=== PATIENT | female | born 1980 | race Caucasian/White ===

== ENCOUNTER 2016-07-25 17:07 | Emergency (ER) | payer OTHER ==
[~2016-07-25] VITALS: Ht 152.4 cm; Wt 111.7 kg
[~2016-07-25 17:07] MED LIST: AMO500 PO; AZITHROMYCIN250 M1 PO; PROAIR HFA0.09 MG/A1 INH
[2016-07-25 22:55] VITALS: BP 113/58
== END 2016-07-25 22:55 | disposition home or self-care (01) ==
LOC: ED 17:07
DX: M54.5 Low back pain (principal); M54.6 Pain in thoracic spine; G89.29 Other chronic pain; M79.606 Pain in leg, unspecified
CPT/HCPCS: J1170; J1885; J2800; Q0162

== ENCOUNTER 2016-11-08 23:29 | Emergency (ER) | payer OTHER ==
[2016-11-09 02:06] LABS: PLATELET COUNT 300 x10^3mcL (130-400); RED CELL DISTRIBUTION WIDTH 12.6 % (11.5-14.5)
[2016-11-09 02:07] LABS: BASOPHIL % 4.6 % (0-2)
[2016-11-09 02:17] LABS: CALCIUM 8.9 mg/dL (8.5-10.1); CARBON DIOXIDE 31.5 mmol/L (21-32); CHLORIDE SERUM 101 mmol/L (98-107); CREATININE SERUM 0.9 mg/dL (0.6-1.0); GFR1 > 60 mL/min; GLUCOSE SERUM 85 mg/dL (74-106); POTASSIUM SERUM 3.3 mmol/L (3.5-5.1); SODIUM SERUM 135 mmol/L (136-145)
[2016-11-09 02:21] LABS: ALBUMIN 3.5 g/dL (3.4-5.0); ALKALINE PHOSPHATASE 63 U/L (46-116); ALT/SGPT 34 U/L (14-59); AST/SGOT 18 U/L (15-37); BILIRUBIN TOTAL 0.2 mg/dL (0.20-1.00); LIPASE 114 IU/L (73-393); TOTAL PROTEIN, SERUM 7.5 g/dL (6.4-8.2)
[2016-11-09 04:00] VITALS: BP 130/78
== END 2016-11-09 04:00 | disposition home or self-care (01) ==
LOC: ED 23:29
PROVIDERS: Emergency Medicine
DX: R10.10 Upper abdominal pain, unspecified (principal); R11.0 Nausea; Z90.49 Acquired absence of other specified parts of digestive tract; Z79.899 Other long term (current) drug therapy
CPT/HCPCS: J1170; J1885; J2270; J2405; J7030

== ENCOUNTER 2016-12-27 00:17 | Emergency (ER) | payer OTHER ==
[2016-12-27 02:22] VITALS: BP 152/81
== END 2016-12-27 02:22 | disposition home or self-care (01) ==
LOC: ED 00:17
DX: S46.912A Strain of unspecified muscle, fascia and tendon at shoulder and upper arm level, left arm, initial encounter (principal); S63.502A Unspecified sprain of left wrist, initial encounter; Z90.711 Acquired absence of uterus with remaining cervical stump; Z79.899 Other long term (current) drug therapy; Z79.51 Long term (current) use of inhaled steroids; X50.1XXA Overexertion from prolonged static or awkward postures, initial encounter; Y93.89 Activity, other specified; Y92.89 Other specified places as the place of occurrence of the external cause; Y99.8 Other external cause status
CPT/HCPCS: Q0092

== ENCOUNTER 2017-07-13 15:25 | Inpatient (IN) | payer OTHER ==
[~2017-07-13] VITALS: Ht 152.4 cm; Wt 110.8 kg
[2017-07-13 16:32] LABS: BASOPHIL % 0.8 % (0-2); PLATELET COUNT 340 x10^3mcL (130-400); RED CELL DISTRIBUTION WIDTH 14.2 % (11.5-14.5)
[2017-07-13 16:36] LABS: CARBON DIOXIDE 30.3 mmol/L (21-32); CHLORIDE SERUM 103 mmol/L (98-107); CREATININE SERUM 0.9 mg/dL (0.6-1.0); GFR1 > 60 mL/min; GLUCOSE SERUM 106 mg/dL (74-106); POTASSIUM SERUM 3.3 mmol/L (3.5-5.1); SODIUM SERUM 139 mmol/L (136-145)
[2017-07-13 16:41] LABS: ALBUMIN 3.8 g/dL (3.4-5.0); ALKALINE PHOSPHATASE 79 U/L (46-116); ALT/SGPT 26 U/L (14-59); AST/SGOT 13 U/L (15-37); BILIRUBIN TOTAL 0.3 mg/dL (0.20-1.00); TOTAL PROTEIN, SERUM 8.1 g/dL (6.4-8.2)
[2017-07-13] MEDS ORDERED: DICYCLOMINE HCL10 MG PO (17:59)
[2017-07-13] MEDS ORDERED: CYMBALTA60 M1 PO (17:59)
[2017-07-13] MEDS ORDERED: FLE10 PO (18:00)
[2017-07-13] MEDS ORDERED: GABAPENTIN800 M1 PO (18:00)
[2017-07-13 18:08] LABS: MAGNESIUM 1.9 mg/dL (1.8-2.4); PHOSPHOROUS 3.7 mg/dL (2.5-4.9)
[2017-07-13 18:18] LABS: CHOLESTEROL/HDL RATIO 2.7
[2017-07-13 18:39] LABS: FREE T4 0.85 ng/dL (0.76-1.46); FREE THYROXINE INDEX 2.1 ug/dL (1.4-4.5)
[2017-07-13 18:50] LABS: T3 TOTAL 0.88 ng/mL
[2017-07-13 19:00] VITALS: BP 134/96
[2017-07-13 20:30] VITALS: BP 130/86
[2017-07-13 21:15] VITALS: BP 130/86
[2017-07-14 00:09] LABS: microscopic required? NO
[2017-07-14 00:21] LABS: urine erythrocyte NEGATIVE (NEGATIVE)
[2017-07-14 00:37] LABS: AMPHETAMINE QUAL UR NONE DETECTED (NEG <=1000)
[2017-07-14 05:44] VITALS: BP 117/73
[2017-07-14 06:08] LABS: CALCIUM 8.2 mg/dL (8.5-10.1); CARBON DIOXIDE 30.8 mmol/L (21-32); CHLORIDE SERUM 102 mmol/L (98-107); CREATININE SERUM 0.9 mg/dL (0.6-1.0); GFR1 > 60 mL/min; GLUCOSE SERUM 102 mg/dL (74-106); PHOSPHOROUS 3.2 mg/dL (2.5-4.9); POTASSIUM SERUM 3.7 mmol/L (3.5-5.1); SODIUM SERUM 139 mmol/L (136-145)
[2017-07-14 06:17] LABS: BASOPHIL % 0.2 % (0-2); PLATELET COUNT 287 x10^3mcL (130-400)
[2017-07-14 08:35] VITALS: Ht 152.4 cm; Wt 110.8 kg
[2017-07-14 09:09] VITALS: BP 125/83
[2017-07-14 12:57] VITALS: BP 116/70
[2017-07-14 16:25] VITALS: BP 101/64
[2017-07-14 19:50] VITALS: BP 125/75
[2017-07-15 06:32] VITALS: BP 100/70
[2017-07-15 06:40] LABS: BASOPHIL % 0.1 % (0-2); PLATELET COUNT 258 x10^3mcL (130-400); RED CELL DISTRIBUTION WIDTH 13.7 % (11.5-14.5)
[2017-07-15 06:49] LABS: CALCIUM 8.2 mg/dL (8.5-10.1); CARBON DIOXIDE 29.6 mmol/L (21-32); CHLORIDE SERUM 103 mmol/L (98-107); CREATININE SERUM 0.8 mg/dL (0.6-1.0); GFR1 > 60 mL/min; GLUCOSE SERUM 101 mg/dL (74-106); MAGNESIUM 2.2 mg/dL (1.8-2.4); POTASSIUM SERUM 3.7 mmol/L (3.5-5.1); SODIUM SERUM 139 mmol/L (136-145)
[2017-07-15 08:21] VITALS: BP 107/74
[2017-07-15 17:07] VITALS: BP 104/73
[2017-07-15 21:22] VITALS: BP 132/69
[2017-07-16 05:55] VITALS: BP 124/89
[2017-07-16 06:23] LABS: CALCIUM 8.7 mg/dL (8.5-10.1); CARBON DIOXIDE 31.2 mmol/L (21-32); CHLORIDE SERUM 103 mmol/L (98-107); CREATININE SERUM 0.8 mg/dL (0.6-1.0); GFR1 > 60 mL/min; GLUCOSE SERUM 105 mg/dL (74-106); POTASSIUM SERUM 4.1 mmol/L (3.5-5.1); SODIUM SERUM 141 mmol/L (136-145)
[2017-07-16 06:26] LABS: BASOPHIL % 0.2 % (0-2); PLATELET COUNT 252 x10^3mcL (130-400); RED CELL DISTRIBUTION WIDTH 14.1 % (11.5-14.5)
[2017-07-16 09:45] VITALS: BP 118/88
[2017-07-16 16:00] VITALS: BP 93/56
[2017-07-16 17:39] VITALS: BP 107/71
[2017-07-16 21:24] VITALS: BP 105/68
[2017-07-17 06:36] VITALS: BP 104/69
[2017-07-17 07:22] LABS: BASOPHIL % 0.3 % (0-2); PLATELET COUNT 293 x10^3mcL (130-400); RED CELL DISTRIBUTION WIDTH 14.1 % (11.5-14.5)
[2017-07-17 10:11] VITALS: BP 106/61
[2017-07-17] MEDS ORDERED: NOR10T PO (15:52)
[2017-07-17] MEDS ORDERED: CLINDAMYCIN HC300 MG PO (15:59)
[2017-07-17] MEDS ORDERED: LAC PO (16:02)
[2017-07-17 17:11] VITALS: BP 118/74
[2017-07-17 17:20] VITALS: BP 118/74
== END 2017-07-17 18:07 | disposition home or self-care (01) | DRG 854 ==
LOC: ED 15:25 → MU 16:57 → DU 16:57 → MU 07-14 09:36
PROVIDERS: Emergency Medicine; Family Medicine; Podiatrist Foot & Ankle Surgery
PROC: 0J9Q0ZZ Drainage of Right Foot Subcutaneous Tissue and Fascia, Open Approach (ICD-10-PCS; principal; 2017-07-16 13:00)
DX: A41.9 Sepsis, unspecified organism (principal); L03.115 Cellulitis of right lower limb; Z68.42 Body mass index [BMI] 45.0-49.9, adult; L97.519 Non-pressure chronic ulcer of other part of right foot with unspecified severity; E66.01 Morbid (severe) obesity due to excess calories; E87.6 Hypokalemia; M79.7 Fibromyalgia; M54.5 Low back pain; E78.5 Hyperlipidemia, unspecified; Z85.41 Personal history of malignant neoplasm of cervix uteri
CPT/HCPCS: 82962; 83880; 84439; 97110-GP; 97116-GP; 97530-GP; G0480; J0696; J1170; J1644; J1885; J1956; J2001; J2175; J2250; J2270; J2405; J2543; J2704; J3010; J3370; J3490; J7030; J7120; J7620; Q0092

== ENCOUNTER 2017-07-19 13:49 | Emergency (ER) | payer OTHER ==
[~2017-07-19] VITALS: Ht 152.4 cm; Wt 108.9 kg
[~2017-07-19 13:49] MED LIST changes: +CLINDAMYCIN HC300 MG PO; +CYMBALTA60 M1 PO; +DICYCLOMINE HCL10 MG PO; +FLE10 PO; +GABAPENTIN800 M1 PO; +LAC PO; +NOR10T PO
[2017-07-19 14:06] VITALS: Ht 152.4 cm; Wt 108.9 kg
== END 2017-07-19 15:01 | disposition home or self-care (01) ==
LOC: ED 13:49
DX: L02.611 Cutaneous abscess of right foot (principal); Z90.710 Acquired absence of both cervix and uterus; Z85.41 Personal history of malignant neoplasm of cervix uteri; K58.9 Irritable bowel syndrome, unspecified

== ENCOUNTER 2018-08-27 00:17 | Emergency (ER) | payer OTHER ==
[~2018-08-27] VITALS: Ht 154.9 cm; Wt 114.5 kg
[2018-08-27 00:24] VITALS: Ht 154.9 cm; Wt 114.5 kg
[2018-08-27 04:21] LABS: BASOPHIL % 0.5 % (0-2); PLATELET COUNT 282 x10^3mcL (130-400)
[2018-08-27 04:33] LABS: CALCIUM 9.1 mg/dL (8.5-10.1); CARBON DIOXIDE 28.6 mmol/L (21-32); CHLORIDE SERUM 105 mmol/L (98-107); GFR1 > 60 mL/min; GLUCOSE SERUM 101 mg/dL (74-106); POTASSIUM SERUM 3.6 mmol/L (3.5-5.1); SODIUM SERUM 141 mmol/L (136-145)
[2018-08-27 04:38] LABS: ALBUMIN 3.4 g/dL (3.4-5.0); ALKALINE PHOSPHATASE 78 U/L (46-116); ALT/SGPT 36 U/L (14-59); AST/SGOT 17 U/L (15-37); BILIRUBIN TOTAL 0.18 mg/dL (0.20-1.00); LIPASE 81 IU/L (73-393); TOTAL PROTEIN, SERUM 7.4 g/dL (6.4-8.2)
[2018-08-27 05:50] VITALS: BP 143/98
== END 2018-08-27 05:50 | disposition home or self-care (01) ==
LOC: ED 00:17
PROVIDERS: Emergency Medicine
DX: L03.316 Cellulitis of umbilicus (principal); Z90.711 Acquired absence of uterus with remaining cervical stump; Z85.41 Personal history of malignant neoplasm of cervix uteri; Z98.890 Other specified postprocedural states; Z90.710 Acquired absence of both cervix and uterus
CPT/HCPCS: J1885; J2270; J2405; J7030

== ENCOUNTER 2018-10-04 12:12 | Emergency (ER) | payer OTHER ==
[~2018-10-04] VITALS: Ht 152.4 cm; Wt 116.1 kg
[2018-10-04 12:44] VITALS: Ht 152.4 cm; Wt 116.1 kg
[2018-10-04 13:11] LABS: BASOPHIL % 1.7 % (0-2); PLATELET COUNT 277 x10^3mcL (130-400); RED CELL DISTRIBUTION WIDTH 14.2 % (11.5-14.5)
[2018-10-04 13:17] LABS: CALCIUM 9.5 mg/dL (8.5-10.1); CARBON DIOXIDE 31.7 mmol/L (21-32); CHLORIDE SERUM 103 mmol/L (98-107); CREATININE SERUM 0.9 mg/dL (0.6-1.0); GFR1 > 60 mL/min; GLUCOSE SERUM 100 mg/dL (74-106); POTASSIUM SERUM 3.9 mmol/L (3.5-5.1); SODIUM SERUM 140 mmol/L (136-145)
[2018-10-04 13:22] LABS: ALBUMIN 3.5 g/dL (3.4-5.0); ALKALINE PHOSPHATASE 65 U/L (46-116); ALT/SGPT 33 U/L (14-59); AMYLASE 37 U/L (25-115); AST/SGOT 15 U/L (15-37); BILIRUBIN TOTAL 0.3 mg/dL (0.20-1.00); LIPASE 72 IU/L (73-393); TOTAL PROTEIN, SERUM 7.2 g/dL (6.4-8.2)
[2018-10-04 14:42] LABS: microscopic required? NO
[2018-10-04 14:49] LABS: urine erythrocyte NEGATIVE (NEGATIVE)
[2018-10-04 17:10] VITALS: BP 114/57
== END 2018-10-04 17:10 | disposition home or self-care (01) ==
LOC: ED 12:12
DX: R10.30 Lower abdominal pain, unspecified (principal); R19.7 Diarrhea, unspecified; K62.5 Hemorrhage of anus and rectum; Z98.890 Other specified postprocedural states; Z90.711 Acquired absence of uterus with remaining cervical stump; Z90.710 Acquired absence of both cervix and uterus; Z90.89 Acquired absence of other organs; Z85.41 Personal history of malignant neoplasm of cervix uteri
CPT/HCPCS: J1885; J2270; J2405; J7030; Q9967

== ENCOUNTER 2018-11-05 04:08 | Emergency (ER) | payer OTHER ==
[~2018-11-05] VITALS: Ht 152.4 cm; Wt 117.9 kg
[2018-11-05 06:03] VITALS: BP 134/95
== END 2018-11-05 06:03 | disposition home or self-care (01) ==
LOC: ED 04:08
DX: M54.5 Low back pain (principal); G89.29 Other chronic pain; Z98.890 Other specified postprocedural states; Z90.710 Acquired absence of both cervix and uterus; Z85.41 Personal history of malignant neoplasm of cervix uteri
CPT/HCPCS: J1885

== ENCOUNTER 2018-12-04 16:25 | Emergency (ER) | payer OTHER ==
[~2018-12-04] VITALS: Ht 152.4 cm; Wt 123.8 kg
[2018-12-04 16:32] VITALS: Ht 152.4 cm; Wt 123.8 kg
[2018-12-04 17:32] VITALS: BP 158/98
== END 2018-12-04 18:16 | disposition home or self-care (01) ==
LOC: ED 16:25
DX: G89.18 Other acute postprocedural pain (principal); S00.512D Abrasion of oral cavity, subsequent encounter; X58.XXXD Exposure to other specified factors, subsequent encounter
CPT/HCPCS: J1885

== ENCOUNTER 2018-12-08 02:52 | Emergency (ER) | payer OTHER ==
[~2018-12-08] VITALS: Ht 152.4 cm; Wt 122.5 kg
[2018-12-08 04:12] LABS: BASOPHIL % 0.6 % (0-2); PLATELET COUNT 323 x10^3mcL (130-400)
[2018-12-08 04:28] LABS: CHLORIDE SERUM 102 mmol/L (98-107); GFR1 > 60 mL/min; GLUCOSE SERUM 97 mg/dL (74-106); POTASSIUM SERUM 4.2 mmol/L (3.5-5.1); SODIUM SERUM 141 mmol/L (136-145)
[2018-12-08 04:33] LABS: ALKALINE PHOSPHATASE 74 U/L (46-116); ALT/SGPT 22 U/L (14-59); AST/SGOT 15 U/L (15-37); BILIRUBIN TOTAL 0.2 mg/dL (0.20-1.00); TOTAL PROTEIN, SERUM 7.1 g/dL (6.4-8.2)
[2018-12-08 05:57] VITALS: BP 126/86
== END 2018-12-08 05:57 | disposition home or self-care (01) ==
LOC: ED 02:52
PROVIDERS: Emergency Medicine
DX: M54.6 Pain in thoracic spine (principal); G89.29 Other chronic pain; R60.9 Edema, unspecified; Z90.711 Acquired absence of uterus with remaining cervical stump
CPT/HCPCS: 36415; J1885

== ENCOUNTER 2019-01-16 17:23 | Emergency (ER) | payer OTHER ==
[~2019-01-16] VITALS: Ht 152.4 cm; Wt 117.9 kg
[2019-01-16 17:29] VITALS: BP 144/92
== END 2019-01-16 18:28 | disposition home or self-care (01) ==
LOC: ED 17:23
DX: L03.312 Cellulitis of back [any part except buttock and flank] (principal)

== ENCOUNTER 2019-01-25 10:45 | Inpatient (IN) | payer OTHER ==
[~2019-01-25] VITALS: Ht 152.4 cm; Wt 113.1 kg
[2019-01-25 11:03] VITALS: Ht 152.4 cm; Wt 113.1 kg
[2019-01-25 12:14] LABS: CALCIUM 8.9 mg/dL (8.5-10.1); CARBON DIOXIDE 30.2 mmol/L (21-32); CHLORIDE SERUM 99 mmol/L (98-107); CREATININE SERUM 0.9 mg/dL (0.6-1.0); GFR1 > 60 mL/min; GLUCOSE SERUM 114 mg/dL (74-106); POTASSIUM SERUM 3.5 mmol/L (3.5-5.1); SODIUM SERUM 138 mmol/L (136-145)
[2019-01-25 12:15] LABS: BASOPHIL % 0.4 % (0-2); PLATELET COUNT 373 x10^3mcL (130-400); RED CELL DISTRIBUTION WIDTH 15.1 % (11.5-14.5)
[2019-01-25 12:19] LABS: ALKALINE PHOSPHATASE 73 U/L (46-116); ALT/SGPT 14 U/L (14-59); AST/SGOT 11 U/L (15-37); BILIRUBIN TOTAL 0.5 mg/dL (0.20-1.00); TOTAL PROTEIN, SERUM 8.1 g/dL (6.4-8.2)
[2019-01-25 12:20] LABS: ALBUMIN 3.1 g/dL (3.4-5.0); C REACTIVE PROTEIN 16.8 mg/dL (<=0.9)
[2019-01-25 15:43] LABS: microscopic required? NO
[2019-01-25] MEDS ORDERED: CYMBALTA60 M1 PO (15:43)
[2019-01-25] MEDS ORDERED: PRILOSEC OTC20 M1 PO (15:43)
[2019-01-25] MEDS ORDERED: DICYCLOMINE HCL10 MG PO (15:43)
[2019-01-25 15:44] LABS: CHOLESTEROL/HDL RATIO 3.2; PHOSPHOROUS 3.6 mg/dL (2.5-4.9)
[2019-01-25 15:58] LABS: UA SPECIFIC GRAVITY 1.025 (1.005-1.035); urine erythrocyte NEGATIVE (NEGATIVE)
[2019-01-25 16:19] LABS: AMPHETAMINE QUAL UR NONE DETECTED (See below)
[2019-01-25 16:27] VITALS: BP 112/74
[2019-01-25 19:42] VITALS: BP 113/74
[2019-01-26 06:21] VITALS: BP 137/78
[2019-01-26 06:33] LABS: BASOPHIL % 0.5 % (0-2); PLATELET COUNT 355 x10^3mcL (130-400)
[2019-01-26 06:54] LABS: CALCIUM 8.7 mg/dL (8.5-10.1); CARBON DIOXIDE 30.3 mmol/L (21-32); CHLORIDE SERUM 104 mmol/L (98-107); CREATININE SERUM 0.8 mg/dL (0.6-1.0); GFR1 > 60 mL/min; GLUCOSE SERUM 118 mg/dL (74-106); MAGNESIUM 2.3 mg/dL (1.8-2.4); PHOSPHOROUS 3.6 mg/dL (2.5-4.9); POTASSIUM SERUM 3.9 mmol/L (3.5-5.1); SODIUM SERUM 140 mmol/L (136-145)
[2019-01-26 07:35] LABS: RED CELL DISTRIBUTION WIDTH 15.5 % (11.5-14.5)
[2019-01-26 07:45] VITALS: BP 143/89
[2019-01-26 09:05] VITALS: BP 130/81
[2019-01-26 16:32] VITALS: BP 121/79
[2019-01-26 20:55] VITALS: BP 140/103
[2019-01-27 05:37] VITALS: BP 162/102
[2019-01-27 06:26] LABS: CALCIUM 8.6 mg/dL (8.5-10.1); CARBON DIOXIDE 31.1 mmol/L (21-32); CHLORIDE SERUM 102 mmol/L (98-107); CREATININE SERUM 0.9 mg/dL (0.6-1.0); GFR1 > 60 mL/min; GLUCOSE SERUM 96 mg/dL (74-106); PHOSPHOROUS 2.8 mg/dL (2.5-4.9); SODIUM SERUM 138 mmol/L (136-145)
[2019-01-27 06:27] LABS: BASOPHIL % 0.6 % (0-2); PLATELET COUNT 362 x10^3mcL (130-400)
[2019-01-27 06:33] LABS: RED CELL DISTRIBUTION WIDTH 15.6 % (11.5-14.5)
[2019-01-27] MEDS ORDERED: LYRICA50 M1 PO (09:19)
[2019-01-27] MEDS ORDERED: NOR10T PO ×6 (09:20→11:40)
[2019-01-27 09:39] VITALS: BP 147/110
[2019-01-27 11:27] VITALS: BP 147/110
== END 2019-01-27 11:45 | disposition home or self-care (01) | DRG 641 ==
LOC: ED 10:45 → MU 15:33
PROVIDERS: Internal Medicine; Student in an Organized Health Care Education/Training Program; ADMIT Internal Medicine
DX: E66.01 Morbid (severe) obesity due to excess calories (principal); E44.1 Mild protein-calorie malnutrition; M54.9 Dorsalgia, unspecified; K21.9 Gastro-esophageal reflux disease without esophagitis; D64.9 Anemia, unspecified
CPT/HCPCS: G0378; J1630; J1885; J2270; J2405; J7030; Q0092

== ENCOUNTER 2019-02-01 09:24 | Emergency (ER) | payer OTHER ==
[~2019-02-01] VITALS: Ht 152.4 cm; Wt 116.6 kg
[~2019-02-01 09:24] MED LIST changes: +LYRICA50 M1 PO; +PRILOSEC OTC20 M1 PO
[2019-02-01 10:05] VITALS: BP 169/112; Ht 152.4 cm; Wt 116.6 kg
== END 2019-02-01 11:27 | disposition home or self-care (01) ==
LOC: ED 09:24
DX: Z48.01 Encounter for change or removal of surgical wound dressing (principal); G89.29 Other chronic pain; Z98.890 Other specified postprocedural states; Z90.710 Acquired absence of both cervix and uterus

== ENCOUNTER 2019-02-08 09:13 | Emergency (ER) | payer OTHER ==
[~2019-02-08] VITALS: Ht 152.4 cm; Wt 115.2 kg
[2019-02-08 09:17] VITALS: Ht 152.4 cm; Wt 115.2 kg
[2019-02-08 12:23] VITALS: BP 120/90
== END 2019-02-08 14:00 | disposition home or self-care (01) ==
LOC: ED 09:13
DX: L08.9 Local infection of the skin and subcutaneous tissue, unspecified (principal); G89.29 Other chronic pain; M54.6 Pain in thoracic spine; E66.9 Obesity, unspecified; Z98.890 Other specified postprocedural states; Z90.710 Acquired absence of both cervix and uterus
CPT/HCPCS: J1885

== ENCOUNTER 2019-02-26 20:19 | Emergency (ER) | payer OTHER ==
[~2019-02-26] VITALS: Ht 152.4 cm; Wt 113.4 kg
[2019-02-26 20:34] VITALS: BP 147/86; Ht 152.4 cm; Wt 113.4 kg
== END 2019-02-26 23:45 | disposition left against medical advice (07) ==
LOC: ED 20:19
DX: Z53.21 Procedure and treatment not carried out due to patient leaving prior to being seen by health care provider (principal)

== ENCOUNTER 2019-04-03 11:25 | Emergency (ER) | payer OTHER ==
[~2019-04-03] VITALS: Ht 162.6 cm; Wt 114.3 kg
[2019-04-03 11:39] VITALS: Ht 162.6 cm; Wt 114.3 kg
[2019-04-03 12:07] LABS: microscopic required? NO
[2019-04-03 12:16] LABS: urine erythrocyte NEGATIVE (NEGATIVE)
[2019-04-03 12:24] LABS: BASOPHIL % 0.4 % (0-2); PLATELET COUNT 334 x10^3mcL (130-400); RED CELL DISTRIBUTION WIDTH 16.2 % (11.5-14.5)
[2019-04-03 12:31] LABS: CARBON DIOXIDE 29.3 mmol/L (21-32); CHLORIDE SERUM 99 mmol/L (98-107); GFR1 > 60 mL/min; GLUCOSE SERUM 108 mg/dL (74-106); POTASSIUM SERUM 3.9 mmol/L (3.5-5.1); SODIUM SERUM 138 mmol/L (136-145)
[2019-04-03 12:32] LABS: ALT/SGPT 19 U/L (14-59); AST/SGOT 12 U/L (15-37); BILIRUBIN TOTAL 0.24 mg/dL (0.20-1.00); CALCIUM 9.3 mg/dL (8.5-10.1)
[2019-04-03 12:33] LABS: ALKALINE PHOSPHATASE 69 U/L (46-116); LIPASE 59 IU/L (73-393)
[2019-04-03 14:33] VITALS: BP 124/80
[2019-04-03 22:17] LABS: ALBUMIN 3.4 g/dL (3.4-5.0)
== END 2019-04-03 14:34 | disposition home or self-care (01) ==
LOC: ED 11:25
PROVIDERS: Emergency Medicine
DX: J11.1 Influenza due to unidentified influenza virus with other respiratory manifestations (principal); G89.29 Other chronic pain; R10.9 Unspecified abdominal pain; T81.30XA Disruption of wound, unspecified, initial encounter; Z98.890 Other specified postprocedural states
CPT/HCPCS: 87804; J2405; J3010; J7030; Q0092

== ENCOUNTER 2019-09-08 13:15 | Emergency (ER) | payer OTHER ==
[~2019-09-08] VITALS: Ht 165.1 cm; Wt 104.3 kg
[2019-09-08 14:16] VITALS: Ht 165.1 cm; Wt 104.3 kg
[2019-09-08 17:00] LABS: UA SPECIFIC GRAVITY 1.015 (1.005-1.035); microscopic required? YES; urine erythrocyte 3+ (NEGATIVE)
[2019-09-08 18:15] LABS: BASOPHIL % 0.5 % (0-2); PLATELET COUNT 305 x10^3mcL (130-400)
[2019-09-08 18:17] LABS: RED CELL DISTRIBUTION WIDTH 16.6 % (11.5-14.5)
[2019-09-08 18:27] LABS: ALBUMIN 3.8 g/dL (3.4-5.0); ALKALINE PHOSPHATASE 80 U/L (46-116); ALT/SGPT 60 U/L (14-59); AST/SGOT 40 U/L (15-37); BILIRUBIN TOTAL 0.6 mg/dL (0.20-1.00); CARBON DIOXIDE 30.3 mmol/L (21-32); CHLORIDE SERUM 97 mmol/L (98-107); GFR1 > 60 mL/min; GLUCOSE SERUM 102 mg/dL (74-106); LIPASE 94 IU/L (73-393); POTASSIUM SERUM 3.1 mmol/L (3.5-5.1); SODIUM SERUM 137 mmol/L (136-145)
[2019-09-08 18:30] LABS: TOTAL PROTEIN, SERUM 8.3 g/dL (6.4-8.2)
[2019-09-08 20:33] VITALS: BP 133/94
== END 2019-09-08 20:33 | disposition home or self-care (01) ==
LOC: ED 13:15
PROVIDERS: Emergency Medicine
DX: N39.0 Urinary tract infection, site not specified (principal); G89.29 Other chronic pain; Z90.710 Acquired absence of both cervix and uterus; E66.01 Morbid (severe) obesity due to excess calories

== ENCOUNTER 2019-10-09 10:52 | Emergency (ER) | payer OTHER ==
[~2019-10-09] VITALS: Ht 152.4 cm; Wt 109.8 kg
[2019-10-09 11:04] VITALS: Ht 152.4 cm; Wt 109.8 kg
[2019-10-09 11:26] LABS: CALCIUM 9.2 mg/dL (8.5-10.1); CHLORIDE SERUM 101 mmol/L (98-107); CREATININE SERUM 0.9 mg/dL (0.6-1.0); GFR1 > 60 mL/min; GLUCOSE SERUM 136 mg/dL (74-106); POTASSIUM SERUM 3.8 mmol/L (3.5-5.1); SODIUM SERUM 140 mmol/L (136-145)
[2019-10-09 11:30] LABS: ALBUMIN 3.4 g/dL (3.4-5.0); ALKALINE PHOSPHATASE 55 U/L (46-116); ALT/SGPT 19 U/L (14-59); AST/SGOT 18 U/L (15-37); BILIRUBIN TOTAL 0.4 mg/dL (0.20-1.00); LIPASE 42 IU/L (73-393); TOTAL PROTEIN, SERUM 7.9 g/dL (6.4-8.2)
[2019-10-09 11:32] LABS: BASOPHIL % 3.1 % (0-2); PLATELET COUNT 377 x10^3mcL (130-400); RED CELL DISTRIBUTION WIDTH 18.2 % (11.5-14.5)
[2019-10-09 14:49] VITALS: BP 116/68
== END 2019-10-09 14:49 | disposition home or self-care (01) ==
LOC: ED 10:52
PROVIDERS: Emergency Medicine
DX: R10.30 Lower abdominal pain, unspecified (principal); G89.29 Other chronic pain; M54.9 Dorsalgia, unspecified; R11.10 Vomiting, unspecified; M79.10 Myalgia, unspecified site; R53.1 Weakness; Z90.710 Acquired absence of both cervix and uterus
CPT/HCPCS: J2270; J2405; J3010

== ENCOUNTER 2019-11-21 07:10 | Emergency (ER) | payer OTHER ==
[~2019-11-21] VITALS: Ht 152.4 cm; Wt 101.2 kg
[2019-11-21 07:21] VITALS: Ht 152.4 cm; Wt 101.2 kg
[2019-11-21 08:04] LABS: BASOPHIL % 1.5 % (0-2); PLATELET COUNT 332 x10^3mcL (130-400); RED CELL DISTRIBUTION WIDTH 19.8 % (11.5-14.5)
[2019-11-21 08:33] LABS: CALCIUM 8.8 mg/dL (8.5-10.1); CARBON DIOXIDE 30.2 mmol/L (21-32); CHLORIDE SERUM 100 mmol/L (98-107); GFR1 > 60 mL/min; GLUCOSE SERUM 119 mg/dL (74-106); POTASSIUM SERUM 3.3 mmol/L (3.5-5.1); SODIUM SERUM 138 mmol/L (136-145)
[2019-11-21 08:39] LABS: ALKALINE PHOSPHATASE 71 U/L (46-116); ALT/SGPT 26 U/L (14-59); AST/SGOT 24 U/L (15-37); BILIRUBIN TOTAL 0.26 mg/dL (0.20-1.00); TOTAL PROTEIN, SERUM 7.3 g/dL (6.4-8.2)
[2019-11-21 08:42] LABS: ALBUMIN 3.2 g/dL (3.4-5.0)
[2019-11-21 09:27] LABS: microscopic required? NO
[2019-11-21 09:46] LABS: UA SPECIFIC GRAVITY <=1.005 (1.005-1.035); urine erythrocyte NEGATIVE (NEGATIVE)
[2019-11-21 10:44] VITALS: BP 114/76
== END 2019-11-21 10:44 | disposition home or self-care (01) ==
LOC: ED 07:10
PROVIDERS: Emergency Medicine
DX: S22.32XA Fracture of one rib, left side, initial encounter for closed fracture (principal); S96.912A Strain of unspecified muscle and tendon at ankle and foot level, left foot, initial encounter; G40.909 Epilepsy, unspecified, not intractable, without status epilepticus; G89.29 Other chronic pain; M54.9 Dorsalgia, unspecified; Z98.890 Other specified postprocedural states; X58.XXXA Exposure to other specified factors, initial encounter; Y93.89 Activity, other specified; Y92.89 Other specified places as the place of occurrence of the external cause; Y99.8 Other external cause status
CPT/HCPCS: Q0092

== ENCOUNTER 2019-11-26 14:58 | Emergency (ER) | payer OTHER ==
[~2019-11-26] VITALS: Ht 152.4 cm; Wt 105.7 kg
[2019-11-26 15:32] VITALS: Ht 152.4 cm; Wt 105.7 kg
[2019-11-26 16:49] LABS: BASOPHIL % 1.8 % (0-2)
[2019-11-26 16:50] LABS: PLATELET COUNT 401 x10^3mcL (130-400); RED CELL DISTRIBUTION WIDTH 19.9 % (11.5-14.5)
[2019-11-26 17:09] LABS: CALCIUM 8.7 mg/dL (8.5-10.1); CARBON DIOXIDE 29.7 mmol/L (21-32); CHLORIDE SERUM 104 mmol/L (98-107); CREATININE SERUM 0.7 mg/dL (0.6-1.0); GFR1 > 60 mL/min; GLUCOSE SERUM 114 mg/dL (74-106); POTASSIUM SERUM 3.6 mmol/L (3.5-5.1); SODIUM SERUM 140 mmol/L (136-145)
[2019-11-26 17:13] LABS: ALKALINE PHOSPHATASE 63 U/L (46-116); ALT/SGPT 19 U/L (14-59); AST/SGOT 18 U/L (15-37); BILIRUBIN TOTAL 0.3 mg/dL (0.20-1.00); TOTAL PROTEIN, SERUM 7.1 g/dL (6.4-8.2)
[2019-11-26 17:19] LABS: ALBUMIN 2.9 g/dL (3.4-5.0)
[2019-11-26 18:08] VITALS: BP 128/70
== END 2019-11-26 18:08 | disposition home or self-care (01) ==
LOC: ED 14:58
PROVIDERS: Emergency Medicine
DX: M62.831 Muscle spasm of calf (principal); M54.42 Lumbago with sciatica, left side; M54.41 Lumbago with sciatica, right side; Z85.41 Personal history of malignant neoplasm of cervix uteri; Z90.710 Acquired absence of both cervix and uterus; Z98.890 Other specified postprocedural states
CPT/HCPCS: J1885